=== PATIENT | male | born 1985 | race Caucasian/White ===

== ENCOUNTER 2019-08-06 11:37 | Outpatient (CLI) | payer MEDICARE, MEDICAID, SELFPAY ==
--- NOTE | 2019-08-06 11:40 | MR_ITS ---
WS: [id number] MRI of the head and brain with and without IV contrast, 08/06/2019 Clinical Data: RE-STAGING EVAL;HX OF BRAIN CANCER Comparison: MRI of the head and brain, 10/26/2018. Findings: The postoperative change of the right temporal, parietal and occipital lobes remain the same. There i s compensatory hypertrophy of the posterior horn of the right lateral ventricle. No ventricular shift is seen. No recent infarct or hemorrhage is seen. No abnormal intracerebral mass is present. The cerebellum and brainstem are unremarkable. The carotid arteries show no aneurysms. The regions of nerves VII and VIII and the mastoid air cells are unremarkable. The pituitary, intraorbital contents and paranasal sinuses are normal. No evidence of metastatic disease is seen, and there is no abnormal contrast enhancement of any struc ture. MR/MR head wo/w con [id number] Impression: 1. Stable postoperative changes with resection of portions of right temporal, p arietal and occipital lobes.. 2. Stable encephalomalacia in the postsurgical region. 3. Compensatory hypertrophy of the posterior horn of the right lateral ventricl e unchanged. 4. No abnormal contrast enhancement of any structure occurs.
[2019-08-06 12:30] LABS: Basophils # 0.1 10^3/uL (0.0-0.1); Eosinophils # 0.3 10^3/uL (0.0-0.8); Eosinophils % 5.8 %; Hematocrit 41.7 % (42.0-52.0); Lymphocytes # 1.2 10^3/uL (0.8-4.8); Lymphocytes % 23.5 %; Mean Corpuscular HGB Conc 31.2 g/dL (30.0-36.0); Mean Corpuscular Hemoglobin 27.9 pg (28.0-34.0); Mean Corpuscular Volume 89.5 fL (80-94); Mean Platelet Volume 11.2 fL (7.4-10.4); Monocytes # 0.5 10^3/uL (0.2-0.9); Monocytes % 9.1 %; Neutrophils % 60.4 %; Nucleated Red Blood Cells % 0 %; Platelet Count 314 10^3/cmm (130-400); Red Blood Count 4.66 10^6/uL (4.1-5.3); Red Cell Distribution Width 13.2 % (12.1-15.1)
[2019-08-06 12:43] LABS: Alanine Aminotransferase 76 U/L (0-41); Albumin Level 4.3 g/dL (3.5-5.2); Alkaline Phosphatase 77 IU/L (40-130); Anion Gap 16.3 (5-19); Aspartate Amino Transferase 46 U/L (0-40); Blood Urea Nitrogen 11 mg/dL (6-20); Calcium 10.4 mg/dL (8.5-10.5); Carbon Dioxide 22 mmol/L (22-29); Chloride 100 mmol/L (98-107); Globulin 3.9 g/dL (1.3-4.6); Glomerular Filtration Rate 111.3 mL/min (90-130); Glucose 119 mg/dL (74-109); Potassium 4.3 mmol/L (3.5-5.1); Sodium 134 mmol/L (136-145); Total Bilirubin 0.5 mg/dL (0.15-1.2); Total Protein 8.2 g/dL (6.6-8.7)
== END 2019-08-06 11:38 | disposition home or self-care (01) ==
LOC: ONCMED 11:37
PROVIDERS: Family Provider Internal Medicine; PCP Internal Medicine; Visit Provider Internal Medicine Hematology & Oncology
DX: Z85.841 Personal history of malignant neoplasm of brain (principal); G93.89 Other specified disorders of brain
CPT/HCPCS: 36415; 70553; 80053; 85025; A9579

== ENCOUNTER → 2019-08-07 08:13 | Outpatient (BNVA) | payer MEDICARE, MEDICAID, SELFPAY | PROVIDERS: Family Provider Internal Medicine; PCP Internal Medicine; Visit Provider Nurse Practitioner | DX: F84.0 Autistic disorder (principal); F20.9 Schizophrenia, unspecified | CPT/HCPCS: 99214 ==

== ENCOUNTER 2019-08-09 11:24 | Outpatient (CLI) | payer MEDICARE, MEDICAID, SELFPAY | END 2019-08-09 11:25 | disposition home or self-care (01) | LOC: ONCMED 11:24 | PROVIDERS: Family Provider Internal Medicine; PCP Internal Medicine; Visit Provider Internal Medicine Hematology & Oncology | DX: Z08 Encounter for follow-up examination after completed treatment for malignant neoplasm (principal); Z85.841 Personal history of malignant neoplasm of brain; F70 Mild intellectual disabilities; L40.9 Psoriasis, unspecified; F84.0 Autistic disorder; Z79.891 Long term (current) use of opiate analgesic; Z98.890 Other specified postprocedural states; Z92.3 Personal history of irradiation; Z92.21 Personal history of antineoplastic chemotherapy | CPT/HCPCS: G0463 ==

== ENCOUNTER 2019-09-30 09:30 | Outpatient (CLI) | payer MEDICARE, MEDICAID, SELFPAY ==
--- NOTE | 2019-09-30 | XR_ITS ---
WS: [id number] LEFT FOOT: 3 VIEW(S) TECHNIQUE: PA, oblique and lateral. HISTORY: LEFT FOOT PAIN COMPARISON: None available. No acute fracture or dislocation. Normal tarsal/metatarsal alignment. Small spur from the anterior calcaneal process. No soft tissue abnormality or bone destruction. XR/XR foot LT min 3V* [id number] IMPRESSION: No LEFT foot fracture.
--- NOTE | 2019-09-30 | XR_ITS ---
WS: [id number] LEFT ANKLE: 3 VIEW(S) TECHNIQUE: AP, oblique(s) and lateral. HISTORY: LEFT FOOT PAIN COMPARISON: None available. Normal anatomic alignment with no fracture or dislocation. No joint effusion or widening of the ankle mortise. Minimal irregularity noted involving the anterior calcaneal process. On the radiographs obtained on t he same day no abnormality is identified. Probably degenerative spurring. Cannot confirm fracture. Small calcaneal spur. XR/XR ankle LT min 3V* [id number] IMPRESSION: 1. No acute fracture identified. 2. Small calcaneal spur.
== END 2019-09-30 09:31 | disposition home or self-care (01) ==
PROVIDERS: Family Provider Internal Medicine; PCP Internal Medicine; Visit Provider Nurse Practitioner Family
DX: Z76.89 Persons encountering health services in other specified circumstances (principal)

== ENCOUNTER 2020-01-28 08:41 | Outpatient (CLI) | payer MEDICARE, MEDICAID, SELFPAY ==
[2020-01-28 09:26] LABS: Basophils # 0.1 10^3/uL (0.0-0.1); Basophils % 0.9 %; Eosinophils # 0.2 10^3/uL (0.0-0.8); Eosinophils % 2.5 %; Hematocrit 42.9 % (42.0-52.0); Hemoglobin 12.1 g/dL (11.7-16.6); Lymphocytes # 1.2 10^3/uL (0.8-4.8); Lymphocytes % 19.3 %; Mean Corpuscular HGB Conc 28.2 g/dL (30.0-36.0); Mean Corpuscular Hemoglobin 24.5 pg (28.0-34.0); Mean Platelet Volume 10.6 fL (7.4-10.4); Monocytes # 0.6 10^3/uL (0.2-0.9); Monocytes % 8.6 %; Neutrophils # 4.36 10^3/uL (1.8-7.7); Neutrophils % 68.4 %; Nucleated Red Blood Cells % 0 %; Platelet Count 356 10^3/cmm (130-400); Red Blood Count 4.93 10^6/uL (4.1-5.3); Red Cell Distribution Width 15.4 % (12.1-15.1); White Blood Count 6.4 10^3/uL (4.0-10.0)
[2020-01-28 09:49] LABS: Alanine Aminotransferase 24 U/L (0-41); Albumin Level 4.2 g/dL (3.5-5.2); Alkaline Phosphatase 80 IU/L (40-130); Anion Gap 13.2 (5-19); Aspartate Amino Transferase 18 U/L (0-40); Blood Urea Nitrogen 15 mg/dL (6-20); Carbon Dioxide 23 mmol/L (22-29); Chloride 107 mmol/L (98-107); Globulin 3.5 g/dL (1.3-4.6); Glomerular Filtration Rate 85.5 mL/min (90-130); Glucose 94 mg/dL (65-115); Osmolality Calculated 284 mOsm/kg (285-295); Potassium 4.2 mmol/L (3.5-5.1); Sodium 139 mmol/L (136-145); Total Bilirubin 0.3 mg/dL (0.15-1.2); Total Protein 7.7 g/dL (6.6-8.7)
== END 2020-01-28 08:42 | disposition home or self-care (01) ==
PROVIDERS: PCP Nurse Practitioner Family; Visit Provider Internal Medicine Hematology & Oncology
DX: C71.8 Malignant neoplasm of overlapping sites of brain (principal)
CPT/HCPCS: 80053; 85025

== ENCOUNTER 2020-01-29 13:10 | Outpatient (CLI) | payer MEDICARE, MEDICAID, SELFPAY ==
--- NOTE | 2020-01-29 14:40 | ONC FU_ITS ---
Dr. James follow up note Patient: Segundo Moore Unit #: [id number]: 1985 Dicatated By: Lili James M.D.Date of Visit:Jan 29, 2020 Onc Med Follow-up/Prog Note History of Present Illness: This is a 34 year-old man with glioblastoma, WHO grade IV, unmethylated. He has a history of autism and mild mental retardation. On 02/15/2017 he was seen in the emergency room with new onset of seizures. A noncontrast head CT showed a large temporoparietal mass measuring 7.7 x 4.5 x 3.8 cm. There was probable right uncal herniation. He was transferred to [facility] for further management. On 02/20/2017 he underwent craniotomy with gross total resection of the mass. Pathology was consistent with glioblastoma, IDH1 (p.R132H) mutation by IHC, WHO grade IV. The FISH analysis was positive for 19q 13 deletion and negative for 1p36 deletion, for EGFR gene amplification, and for loss of 10q/monosomy 10. The tumor was found to be unmethylated by the MGMT methylation assay. . He underwent radiation concurrently with temozolamide chemotherapy. His radiation was completed on 05/30/2017 to a total dose of 6000 cGy. He tolerated the treatment well. s/p Temodar maintenance therapy monthly x6 from July 2017 till january 2018 Follow-up MRI scan of the brain done on 10/26/2018 showed no evidence of disease recurrence or progression MRI scan of the brain done on 08/06/2019 showed stable postoperative changes with resection of portion of right temporal, parietal, occipital lobes no evidence of recurrence of disease Came for follow-up, denies any specific complaints, no fever chills, no nausea or vomiting, no diarrhea constipation but occasionally headaches. As per caregiver no seizure-like activity, no blurred vision or double vision Medications: Arthritis Pain 1 (650 mg) Tablet, controlled release Oral q 8 hours PRN, Benztropine Mesylate 1 Tablet (of 0.5 mg) Oral b.i.d., Bisacodyl 1 Suppository (of 10 mg) Rectal daily PRN, Cetirizine HCl 1 (10 mg) Tablet Oral daily PRN, Divalproex Sodium 3 Tablet (of 250 mg) Tablet, enteric coated Oral b.i.d., Docusate Sodium 1 Tablet (of 100 mg) Oral b.i.d., Famotidine 1 (20 mg) Tablet Oral b.i.d., [place] Carbonate ER 1 Tablet (of 300 mg) Tablet, controlled release Oral b.i.d., MiraLax 1 Packet Pack Oral daily, OLANZapine 1 (5 mg) Tablet Dispersable Oral daily, Ondansetron 1 Tablet Oral q 8 hours PRN, OxyCODONE HCl 1 - 2 Tablet (of 5 mg) Oral q 4 hours PRN, Propranolol HCl 1 Tablet (of 20 mg) Oral t.i.d., Senna 1 Tablet (of 8.6 mg) Tablet Oral b.i.d., thorazine 1 Tablet (of 100 mg) t.i.d. Allergies: No Known Allergies. Review of Systems: Review of Systems is not available for this patient. Vital Signs: Performed on Jan 29, 2020 13:35 Height - 72.00 in Weight - 252.0 lbs (LOW) BSA - 2.35 sq.m BMI - 34.18 (HIGH) Temperature - 98.0 F (LOW) Pulse - 84 /min Respiration - 24 /min BP - 119/83 mm(hg) O2 Sat - 96 % Pain - 0 Performance Status: 1 - No physically strenuous activity, but ambulatory and able to carry out light or sedentary work (e.g. office work, light house work). (ECOG) Physical Examination: ENMT - No mouth sores, no thrush, no, Respiratory - Lungs are clear, Cardiovascular - Regular rate and rhythm of heart, Abdomen - Soft, bowel sounds present, Extremities - No visible edema, gross Neuro exam is nonfocal. Lab/Imaging: Test performed on Aug 06, 2019 11:46 Sodium 134 mmol/L Potassium 4.3 mmol/L Chloride 100 mmol/L CO2 22 mmol/L Anion Gap 16.3 BUN 11 mg/dL Creatinine 0.8 mg/dL Cr Clearance (Est) 234.9200 mL/min eGFR 111.3 mL/min Glucose 119 mg/dL Calcium 10.4 mg/dL Protein, Total 8.2 g/dL Albumin 4.3 g/dL Globulin 3.9 g/dL Bilirubin, Total 0.5 mg/dL ALT (SGPT) 76 U/L AST (SGOT) 46 U/L Alkaline Phosphatase 77 IU/L WBC 5.0 10 3/uL RBC 4.66 10 6/uL HGB 13.0 g/dL HCT 41.7 % MCV 89.5 fL MCH 27.9 pg MCHC 31.2 g/dL RDW 13.2 % Platelet Count 314 10 3/cmm MPV 11.2 fL Neutrophils 3.0 10 3/uL Lymphocytes 1.2 10 3/uL Monocytes 0.5 10 3/uL Eosinophils 0.3 10 3/uL Basophils 0.1 10 3/uL Neutrophil % 60.4 % Lymphocyte % 23.5 % Monocyte % 9.1 % Eosinophil % 5.8 % Basophils % 1.0 % Impression: 1. Glioblastoma multiforme involving the right temporoparietal lobe, WHO grade IV, unmethylated. 2. He underwent craniotomy with gross total resection of the tumor on 02/20/2017. 3. He was given postop radiation concurrently with temozolamide chemotherapy, completed on 05/30/2017 to a total dose of 6000 cGy. He tolerated the treatment well.Started on monthly Temodar in the first week of July 2017 And second treatment on August 14- 2017 Fourth treatment on 10/19/2017 And final and cycle #6 finished in January 2018. 4. He has underlying autism/mild mental retardation. Follow-up MRI scan of head was done on 10/10/2017 showed no evidence of right temporal occipital lobe disease recurrence/progression, status post surgical resection of large intra-axial mass. Resolution of surgical bed wall enhancement and similar subadjacent white matter likely post-therapeutic changes .Follow-up MRI scan done on 05/03/2018 showed no evidence of recurrent or progressive disease. Stable right parietotemporal occipital resection cavity with surrounding encephalomalacia and gliosis. Follow-up MRI scan of the head done on 10/26/2018 showed no evidence of disease recurrence or progression Stable postoperative changes of right parietotemporal and acceptable resection with encephalomalacia, gliosis and unchanged craniotomy. No new intracranial abnormality. No evidence of increase edema or mass effect Plan: Discussed with patient and caregiver regarding his labs white blood count 6.4, hemoglobin 12.1 hematocrit 42.9 platelets 356,000 CMP within normal limits including LFTs Clinically, patient is doing well with no new signs symptom suggestive of recurrence of disease but occasionally headaches which could be due to many reasons but we will consider follow-up MRI scan of the brain prior to next visit. Return to clinic in 6 months Signed By: Lili James M.D. <<Signature on File>>
== END 2020-01-29 13:11 | disposition home or self-care (01) ==
LOC: ONCMED 13:14
PROVIDERS: PCP Nurse Practitioner Family; Visit Provider Internal Medicine Hematology & Oncology
DX: Z08 Encounter for follow-up examination after completed treatment for malignant neoplasm (principal); Z85.841 Personal history of malignant neoplasm of brain; R51 Headache; F84.0 Autistic disorder; Z92.3 Personal history of irradiation; Z92.21 Personal history of antineoplastic chemotherapy
CPT/HCPCS: G0463

== ENCOUNTER 2020-07-29 10:56 | Outpatient (CLI) | payer MEDICARE, MEDICAID, SELFPAY ==
--- NOTE | 2020-07-29 11:01 | MR_ITS ---
WS: [id number] MRI BRAIN WITH AND WITHOUT CONTRAST HISTORY: RESTAGING EVAL;HX OF CANCER; PERSISTENT Headache; glioblastoma COMPARISON: 08/06/2019, 10/26/2018 TECHNIQUE: Multiplanar imaging performed through the brain with Prohance 17 ml's IV. Postsurgical changes in the RIGHT temporal, parietal and occipital lobes now with encephalomalacia an d gliosis. Postoperative cystic cavity extends to the RIGHT occipital horn and may communicate with t he occipital horn. There are multiple CSF fluidlike cavities which are stable since the prior study. There is gliosis surrounding the postoperative cavity. There is no evidence for recurrence. No areas of abnormal enhancement or interval change. There is no edema or FLAIR signal or enhancement extendin g into the corpus callosum. The extent of the gliosis and FLAIR signal abnormality surrounding the RI GHT occipital lobe are stable. No susceptibility artifacts or prior lacunar infarcts. Extra-axial dilatation of the RIGHT lateral ventricle is similar to prior studies. No intraventricula r mass or extension. Clivus and pituitary gland are normal. Bilateral retrocerebellar arachnoid cyst. Paranasal sinuses: Well aerated with no significant disease. Mastoid air cells: Normal. Calvarium and scalp: RIGHT temporoparietal craniotomy is unchanged. MR/MR head wo/w con [id number] IMPRESSION: 1. Stable large resection site involving the RIGHT temporal, parietal and occi pital lobes with no evidence for recurrent tumor or enhancement. 2. No acute infarct. 3. Exvacuodilatation of the RIGHT occipital horn.
== END 2020-07-29 10:57 | disposition home or self-care (01) ==
LOC: RADSHAW 11:00
PROVIDERS: PCP Nurse Practitioner Family; Visit Provider Internal Medicine Hematology & Oncology
DX: C71.9 Malignant neoplasm of brain, unspecified (principal)
CPT/HCPCS: 70553; A9579

== ENCOUNTER 2020-08-14 05:39 | Outpatient (CLI) | payer MEDICARE, MEDICAID, SELFPAY ==
--- NOTE | 2020-08-14 09:37 | ONC FU_ITS ---
Dr. James follow up note Patient: Segundo Moore Unit #: [id number]: 1985 Dicatated By: Lili James M.D.Date of Visit:Aug 14, 2020 Onc Med Follow-up/Prog Note History of Present Illness: This is a 35 year-old man with glioblastoma, WHO grade IV, unmethylated. He has a history of autism and mild mental retardation. On 02/15/2017 he was seen in the emergency room with new onset of seizures. A noncontrast head CT showed a large temporoparietal mass measuring 7.7 x 4.5 x 3.8 cm. There was probable right uncal herniation. He was transferred to [facility] for further management. On 02/20/2017 he underwent craniotomy with gross total resection of the mass. Pathology was consistent with glioblastoma, IDH1 (p.R132H) mutation by IHC, WHO grade IV. The FISH analysis was positive for 19q 13 deletion and negative for 1p36 deletion, for EGFR gene amplification, and for loss of 10q/monosomy 10. The tumor was found to be unmethylated by the MGMT methylation assay. . He underwent radiation concurrently with temozolamide chemotherapy. His radiation was completed on 05/30/2017 to a total dose of 6000 cGy. He tolerated the treatment well. s/p Temodar maintenance therapy monthly x6 from July 2017 till january 2018 Follow-up MRI scan of the brain done on 10/26/2018 showed no evidence of disease recurrence or progression MRI scan of the brain done on 08/06/2019 showed stable postoperative changes with resection of portion of right temporal, parietal, occipital lobes no evidence of recurrence of disease Follow-up MRI scan of the brain done on July 29, 2020 showed stable large resection site involving the right episcopalian, parietal and occipital lobes with no evidence of recurrent or enhancement no acute infarct Came for follow-up, denies any specific complaints, no focal weakness as per caregiver no nausea or vomiting, no seizure-like activity, no headaches, no new signs symptoms. No fever chills Medications: Arthritis Pain 1 (650 mg) Tablet, controlled release Oral q 8 hours PRN, Benztropine Mesylate 1 Tablet (of 0.5 mg) Oral b.i.d., Bisacodyl 1 Suppository (of 10 mg) Rectal daily PRN, Cetirizine HCl 1 (10 mg) Tablet Oral daily PRN, ChlorproMAZINE HCl 1 Tablet (of 100 mg) Oral t.i.d., Docusate Sodium 1 Tablet (of 100 mg) Oral b.i.d., [place] Carbonate ER 1 Tablet (of 300 mg) Tablet, controlled release Oral b.i.d., MiraLax 1 Packet Pack Oral daily, Omeprazole 1 Capsule (of 20 mg) Capsule Delayed Release Oral b.i.d., Ondansetron 1 Tablet Oral q 8 hours PRN, Paxil 1 Tablet (of 10 mg) Oral at bedtime, Propranolol HCl 1 Tablet (of 20 mg) Oral t.i.d., risperiDONE 1.5 Tablet (of 0.5 mg) Oral t.i.d., Senna 1 Tablet (of 8.6 mg) Tablet Oral b.i.d., thorazine 1 Tablet (of 100 mg) t.i.d. Allergies: No Known Allergies. Review of Systems: Review of Systems is not available for this patient. Vital Signs: Performed on Aug 14, 2020 09:07 Height - 72.00 in Weight - 236.9 lbs (LOW) BSA - 2.29 sq.m BMI - 32.13 (HIGH) Temperature - 97.8 F (LOW) Pulse - 80 /min Respiration - 16 /min BP - 111/72 mm(hg) O2 Sat - 99 % Pain - 0 Performance Status: 2 - Ambulatory/capable of all self-care, unable to perform any work activities. Up and about more than 50% of waking hours. (ECOG) Physical Examination: ENMT - Denies any mouth sores, poor oral hygiene, Respiratory - Lungs are clear to auscultation, Cardiovascular - Regular rate and rhythm of heart, Abdomen - Soft, bowel sounds present, Extremities - No visible edema. Lab/Imaging: Most recent lab results are not available for this patient. Impression: 1. Glioblastoma multiforme involving the right temporoparietal lobe, WHO grade IV, unmethylated. 2. He underwent craniotomy with gross total resection of the tumor on 02/20/2017. 3. He was given postop radiation concurrently with temozolamide chemotherapy, completed on 05/30/2017 to a total dose of 6000 cGy. He tolerated the treatment well.Started on monthly Temodar in the first week of July 2017 And second treatment on August 14- 2017 Fourth treatment on 10/19/2017 And final and cycle #6 finished in January 2018. 4. He has underlying autism/mild mental retardation. Follow-up MRI scan of head was done on 10/10/2017 showed no evidence of right temporal occipital lobe disease recurrence/progression, status post surgical resection of large intra-axial mass. Resolution of surgical bed wall enhancement and similar subadjacent white matter likely post-therapeutic changes .Follow-up MRI scan done on 05/03/2018 showed no evidence of recurrent or progressive disease. Stable right parietotemporal occipital resection cavity with surrounding encephalomalacia and gliosis. Follow-up MRI scan of the head done on 10/26/2018 showed no evidence of disease recurrence or progression Stable postoperative changes of right parietotemporal and acceptable resection with encephalomalacia, gliosis and unchanged craniotomy. No new intracranial abnormality. No evidence of increase edema or mass effect Plan: Discussed with patient and caregiver regarding his MRI scan of the brain which was done on July 29, 2020 showed no evidence of recurrence of disease postsurgical changes in the right episcopalian, parietal and occipital lobes. Clinically, patient has no new signs symptom, no seizure-like activity, no focal weakness, as per caregiver no headaches or nausea or vomiting, will continue to monitor, return to clinic in 6 months with follow-up MRI scan of the head Signed By: Lili James M.D. <<Signature on File>>
== END 2020-08-14 05:40 | disposition home or self-care (01) ==
LOC: ONCMED 05:40
PROVIDERS: PCP Nurse Practitioner Family; Visit Provider Internal Medicine Hematology & Oncology
DX: Z08 Encounter for follow-up examination after completed treatment for malignant neoplasm (principal); Z85.841 Personal history of malignant neoplasm of brain; F84.0 Autistic disorder; F70 Mild intellectual disabilities; Z92.3 Personal history of irradiation; Z92.21 Personal history of antineoplastic chemotherapy
CPT/HCPCS: G0463

== ENCOUNTER 2021-02-10 09:07 | Outpatient (CLI) | payer MEDICARE, MEDICAID, SELFPAY ==
--- NOTE | 2021-02-10 09:18 | MR_ITS ---
WS: [id number] MRI BRAIN WITH AND WITHOUT CONTRAST HISTORY: Glioblastoma; persistent Headache; hx OF CANCER COMPARISON: 07/29/2020 TECHNIQUE: Multiplanar imaging performed through the brain with MultiHance 20 ml's IV. Large area of postoperative resection involving the RIGHT temporal, parietal occipital lobes with adj acent encephalomalacia. Ex vacuole dilatation of the RIGHT lateral ventricle. On the postcontrast elsa ging there is no focal area of enhancement to suggest recurrence. Very mild thickening and enhancemen t of the dura is stable and consistent with postoperative change. No extension of edema or enhancemen t through the corpus callosum. No meningeal enhancement. No prior or acute infarcts. No inferior displacement of cerebellar tonsils. Dural venous sinuses are normal. Paranasal sinuses: Well aerated with no significant disease. Mastoid air cells: Normal. Calvarium and scalp: RIGHT postoperative craniotomy site is stable. MR/MR head wo/w con [id number] IMPRESSION: 1. Large stable postoperative resection site involving the RIGHT parietal, tem poral and occipital regions with encephalomalacia. No evidence for recurrence. 2. No areas of enhancement or new progressive edema.
[2021-02-10 10:04] LABS: Basophils # 0.1 10^3/uL (0.0-0.1); Basophils % 1.1 %; Eosinophils # 0.2 10^3/uL (0.0-0.8); Eosinophils % 2.7 %; Hematocrit 42.7 % (42.0-52.0); Hemoglobin 12.8 g/dL (11.7-16.6); Lymphocytes # 1.2 10^3/uL (0.8-4.8); Lymphocytes % 16.6 %; Mean Corpuscular Hemoglobin 26.2 pg (28.0-34.0); Mean Corpuscular Volume 87.5 fL (80-94); Mean Platelet Volume 10.2 fL (7.4-10.4); Monocytes # 0.6 10^3/uL (0.2-0.9); Monocytes % 8.6 %; Neutrophils # 5.23 10^3/uL (1.8-7.7); Neutrophils % 70.6 %; Nucleated Red Blood Cells % 0 %; Platelet Count 350 10^3/cmm (130-400); Red Blood Count 4.88 10^6/uL (4.1-5.3); Red Cell Distribution Width 13.4 % (12.1-15.1); White Blood Count 7.4 10^3/uL (4.0-10.0)
[2021-02-10 10:41] LABS: Alanine Aminotransferase 13 U/L (0-41); Albumin Level 4.1 g/dL (3.5-5.2); Alkaline Phosphatase 84 IU/L (40-130); Anion Gap 11.8 (5-19); Aspartate Amino Transferase 11 U/L (0-40); Blood Urea Nitrogen 16 mg/dL (6-20); Calcium 8.9 mg/dL (8.5-10.5); Carbon Dioxide 24 mmol/L (22-29); Chloride 105 mmol/L (98-107); Glucose 75 mg/dL (65-115); Osmolality Calculated 284 mOsm/kg (285-295); Potassium 3.8 mmol/L (3.5-5.1); Sodium 137 mmol/L (136-145); Total Bilirubin 0.2 mg/dL (0.15-1.2); Total Protein 7.1 g/dL (6.6-8.7)
== END 2021-02-10 09:08 | disposition home or self-care (01) ==
PROVIDERS: PCP Nurse Practitioner Family; Visit Provider Internal Medicine Hematology & Oncology
DX: C71.8 Malignant neoplasm of overlapping sites of brain (principal); R51.9 Headache, unspecified
CPT/HCPCS: 36415; 70553; 80053; 85025; A9577

== ENCOUNTER 2021-02-15 12:26 | Outpatient (CLI) | payer MEDICARE, MEDICAID, SELFPAY ==
--- NOTE | 2021-02-15 14:13 | ONC FU_ITS ---
Dr. James follow up note Patient: Segundo Moore Unit #: [id number]: 1985 Dicatated By: Lili James M.D.Date of Visit:Feb 15, 2021 Onc Med Follow-up/Prog Note History of Present Illness: This is a 35 year-old man with glioblastoma, WHO grade IV, unmethylated. He has a history of autism and mild mental retardation. On 02/15/2017 he was seen in the emergency room with new onset of seizures. A noncontrast head CT showed a large temporoparietal mass measuring 7.7 x 4.5 x 3.8 cm. There was probable right uncal herniation. He was transferred to [facility] for further management. On 02/20/2017 he underwent craniotomy with gross total resection of the mass. Pathology was consistent with glioblastoma, IDH1 (p.R132H) mutation by IHC, WHO grade IV. The FISH analysis was positive for 19q 13 deletion and negative for 1p36 deletion, for EGFR gene amplification, and for loss of 10q/monosomy 10. The tumor was found to be unmethylated by the MGMT methylation assay. . He underwent radiation concurrently with temozolamide chemotherapy. His radiation was completed on 05/30/2017 to a total dose of 6000 cGy. He tolerated the treatment well. s/p Temodar maintenance therapy monthly x6 from July 2017 till january 2018 Follow-up MRI scan of the brain done on 10/26/2018 showed no evidence of disease recurrence or progression MRI scan of the brain done on 08/06/2019 showed stable postoperative changes with resection of portion of right temporal, parietal, occipital lobes no evidence of recurrence of disease Follow-up MRI scan of the brain done on July 29, 2020 showed stable large resection site involving the right samaritan, parietal and occipital lobes with no evidence of recurrent or enhancement no acute infarct Follow-up MRI scan of the brain done on February 10, 2021 showed large stable postoperative resection site involving right parietal, temporal and occipital regions with encephalomalacia, no evidence of recurrence of disease Came for follow-up, denies any specific complaint, no seizure-like activity no focal weakness, no headaches blurred vision or double vision, no fever chills, no nausea or vomiting, no diarrhea constipation Medications: Arthritis Pain 1 (650 mg) Tablet, controlled release Oral q 8 hours PRN, Benztropine Mesylate 1 Tablet (of 0.5 mg) Oral b.i.d., Bisacodyl 1 Suppository (of 10 mg) Rectal daily PRN, Cetirizine HCl 1 (10 mg) Tablet Oral daily PRN, ChlorproMAZINE HCl 1 Tablet (of 100 mg) Oral t.i.d., Docusate Sodium 1 Tablet (of 100 mg) Oral b.i.d., [place] Carbonate ER 1 Tablet (of 300 mg) Tablet, controlled release Oral b.i.d., MiraLax 1 Packet Pack Oral daily, Omeprazole 1 Capsule (of 20 mg) Capsule Delayed Release Oral b.i.d., Ondansetron 1 Tablet Oral q 8 hours PRN, Paxil 1 Tablet (of 10 mg) Oral at bedtime, Propranolol HCl 1 Tablet (of 20 mg) Oral t.i.d., risperiDONE 1.5 Tablet (of 0.5 mg) Oral t.i.d., Senna 1 Tablet (of 8.6 mg) Tablet Oral b.i.d., thorazine 1 Tablet (of 100 mg) t.i.d. Allergies: No Known Allergies. Review of Systems: Review of Systems is not available for this patient. Vital Signs: Vitals are not available for this patient. Performance Status: 0 - Fully active, able to carry on all predisease activities without restrictions. (ECOG) Physical Examination: ENMT - No mouth sores, no thrush but extensive exfoliative dermatitis involving scalp, Respiratory - Lungs are clear to auscultation, Cardiovascular - Regular rate and rhythm of heart, Abdomen - Soft, nontender, Extremities - No visible edema but expiratory rash involving upper extremities especially dorsal side. Lab/Imaging: Most recent lab results are not available for this patient. Impression: 1. Glioblastoma multiforme involving the right temporoparietal lobe, WHO grade IV, unmethylated. 2. He underwent craniotomy with gross total resection of the tumor on 02/20/2017. 3. He was given postop radiation concurrently with temozolamide chemotherapy, completed on 05/30/2017 to a total dose of 6000 cGy. He tolerated the treatment well.Started on monthly Temodar in the first week of July 2017 And second treatment on August 142017 Fourth treatment on 10/19/2017 And final and cycle #6 finished in January 2018. 4. He has underlying autism/mild mental retardation. Follow-up MRI scan of head was done on 10/10/2017 showed no evidence of right temporal occipital lobe disease recurrence/progression, status post surgical resection of large intra-axial mass. Resolution of surgical bed wall enhancement and similar subadjacent white matter likely post-therapeutic changes .Follow-up MRI scan done on 05/03/2018 showed no evidence of recurrent or progressive disease. Stable right parietotemporal occipital resection cavity with surrounding encephalomalacia and gliosis. Follow-up MRI scan of the head done on 10/26/2018 showed no evidence of disease recurrence or progression Stable postoperative changes of right parietotemporal and acceptable resection with encephalomalacia, gliosis and unchanged craniotomy. No new intracranial abnormality. No evidence of increase edema or mass effect MRI scan of the brain done on February 10, 2021 showed no evidence of recurrence of disease, persistent postop changes in right brain Plan: Discussed with patient and caregiver regarding his labs white blood count 7.4 hemoglobin 12.8 hematocrit 42.7 platelets 350,000 CMP within normal limits MRI scan of the brain done on February 10, 2021 showed no evidence of recurrence of disease, persistent postop changes in right brain Clinically, patient doing well with no new signs symptom suggestive of recurrence of disease, his follow-up lab work-up and MRI scan of brain shows no recurrence of disease, will continue to monitor and he will return to clinic in 6 months with CBC CMP and MRI scan of the head 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 Signed By: Lili James M.D. <<Signature on File>>
== END 2021-02-15 12:27 | disposition home or self-care (01) ==
PROVIDERS: PCP Nurse Practitioner Family; Visit Provider Internal Medicine Hematology & Oncology
DX: Z08 Encounter for follow-up examination after completed treatment for malignant neoplasm (principal); Z85.841 Personal history of malignant neoplasm of brain; F84.0 Autistic disorder; Z92.21 Personal history of antineoplastic chemotherapy; Z92.3 Personal history of irradiation; Z79.899 Other long term (current) drug therapy
CPT/HCPCS: 99214

== ENCOUNTER 2021-08-10 09:16 | Outpatient (CLI) | payer MEDICARE, MEDICAID, SELFPAY ==
--- NOTE | 2021-08-10 09:32 | MR_ITS ---
WS: [id number] MRI BRAIN WITH AND WITHOUT CONTRAST HISTORY: RESTAGING EVALUATION/HX OF CANCER COMPARISON: 02/10/2021 TECHNIQUE: Multiplanar imaging performed through the brain with MultiHance 19 ml's IV. Prior RIGHT parietal, occipital and posterior temporal craniotomy. There is a large stable postoperat saira resection site involving portions of the RIGHT parietal, temporal and occipital lobes with enceph alomalacia. There is no enhancement at the resection site. No recurrent mass identified. Encephalomal acia with ex vacuole dilatation of the adjacent lateral ventricle. No new areas of enhancement. No diffusion-weighted abnormalities. There is a small amount of increased T2 and FLAIR signal surroun ding the postoperative cavity consistent with gliosis. No new areas of hemorrhage. No midline shift. Small stable LEFT posterior occipital lymph node. Paranasal sinuses: Mild mucoperiosteal thickening in the maxillary sinus cavities. No air-fluid leve ls. Mastoid air cells: Normal. Calvarium and scalp: Normal. MR/MR head wo/w con [id number] IMPRESSION: 1. No evidence of recurrence of neoplastic disease involving the large RIGHT r esection cavity. 2. Stable RIGHT parietal, temporal and occipital resection cavity and cranioto my. 3. Extra-axial dilatation of the RIGHT lateral ventricle. 4. No new focal areas of enhancement.
== END 2021-08-10 09:17 | disposition home or self-care (01) ==
LOC: RAD 09:21
PROVIDERS: PCP Nurse Practitioner Family; Visit Provider Internal Medicine Hematology & Oncology
DX: C71.8 Malignant neoplasm of overlapping sites of brain (principal); C71.9 Malignant neoplasm of brain, unspecified
CPT/HCPCS: 70553; A9577

== ENCOUNTER 2021-08-19 08:43 | Outpatient (CLI) | payer MEDICARE, MEDICAID, SELFPAY ==
[2021-08-19 09:40] LABS: Basophils # 0.1 10^3/uL (0.0-0.1); Basophils % 0.9 %; Eosinophils # 0.2 10^3/uL (0.0-0.8); Eosinophils % 3.1 %; Hematocrit 43.4 % (42.0-52.0); Hemoglobin 13.5 g/dL (11.7-16.6); Lymphocytes # 1.1 10^3/uL (0.8-4.8); Lymphocytes % 16.4 %; Mean Corpuscular HGB Conc 31.1 g/dL (30.0-36.0); Mean Corpuscular Hemoglobin 28.4 pg (28.0-34.0); Mean Corpuscular Volume 91.4 fl (80-94); Mean Platelet Volume 10.8 fL (7.4-10.4); Monocytes # 0.5 10^3/uL (0.2-0.9); Monocytes % 7.4 %; Neutrophils # 4.88 10^3/uL (1.8-7.7); Neutrophils % 71.9 %; Nucleated Red Blood Cells % 0 %; Platelet Count 273 10^3/cmm (130-400); Red Blood Count 4.75 10^6/uL (4.1-5.3); Red Cell Distribution Width 13.2 % (12.1-15.1); White Blood Count 6.8 10^3/uL (4.0-10.0)
[2021-08-19 10:05] LABS: Alanine Aminotransferase 12 U/L (0-41); Albumin Level 4.6 g/dL (3.5-5.2); Alkaline Phosphatase 68 IU/L (40-130); Anion Gap 15.2 (5-19); Aspartate Amino Transferase 13 U/L (0-40); Blood Urea Nitrogen 12 mg/dL (6-20); Carbon Dioxide 25 mmol/L (22-29); Chloride 104 mmol/L (98-107); Globulin 2.4 g/dL (1.3-4.6); Glucose 76 mg/dL (65-115); Osmolality Calculated 289 mOsm/kg (285-295); Potassium 4.2 mmol/L (3.5-5.1); Sodium 140 mmol/L (136-145); Total Bilirubin 0.3 mg/dL (0.15-1.2)
--- NOTE | 2021-08-19 16:10 | ONC FU_ITS ---
Dr. James follow up note Patient: Segundo Moore Unit #: [id number]: 1985 Dicatated By: Lili James M.D.Date of Visit:Aug 19, 2021 Onc Med Follow-up/Prog Note History of Present Illness: This is a 35 year-old man with glioblastoma, WHO grade IV, unmethylated. He has a history of autism and mild mental retardation. On 02/15/2017 he was seen in the emergency room with new onset of seizures. A noncontrast head CT showed a large temporoparietal mass measuring 7.7 x 4.5 x 3.8 cm. There was probable right uncal herniation. He was transferred to [facility] for further management. On 02/20/2017 he underwent craniotomy with gross total resection of the mass. Pathology was consistent with glioblastoma, IDH1 (p.R132H) mutation by IHC, WHO grade IV. The FISH analysis was positive for 19q 13 deletion and negative for 1p36 deletion, for EGFR gene amplification, and for loss of 10q/monosomy 10. The tumor was found to be unmethylated by the MGMT methylation assay. . He underwent radiation concurrently with temozolamide chemotherapy. His radiation was completed on 05/30/2017 to a total dose of 6000 cGy. He tolerated the treatment well. s/p Temodar maintenance therapy monthly x6 from July 2017 till january 2018 Follow-up MRI scan of the brain done on 10/26/2018 showed no evidence of disease recurrence or progression MRI scan of the brain done on 08/06/2019 showed stable postoperative changes with resection of portion of right temporal, parietal, occipital lobes no evidence of recurrence of disease Follow-up MRI scan of the brain done on July 29, 2020 showed stable large resection site involving the right restoration, parietal and occipital lobes with no evidence of recurrent or enhancement no acute infarct Follow-up MRI scan of the brain done on February 10, 2021 showed large stable postoperative resection site involving right parietal, temporal and occipital regions with encephalomalacia, no evidence of recurrence of disease Follow-up MRI scan of brain done on August 10, 2021 showed no evidence of recurrence of neoplastic disease involving the the large right resection cavity. Stable right parietal, temporal, occipital resection cavity and craniotomy., No new focal areas of enhancement Came for follow-up, denies any specific complaints, no headaches no blurred vision no double vision, no seizure-like activity, no fever chills, no nausea or vomiting, appetite is good, as per caregiver no new symptoms since last visit Medications: Arthritis Pain 1 (650 mg) Tablet, controlled release Oral q 8 hours PRN, Benztropine Mesylate 1 Tablet (of 0.5 mg) Oral b.i.d., Bisacodyl 1 Suppository (of 10 mg) Rectal daily PRN, Cetirizine HCl 1 (10 mg) Tablet Oral daily PRN, ChlorproMAZINE HCl 1 Tablet (of 100 mg) Oral t.i.d., Docusate Sodium 1 Tablet (of 100 mg) Oral b.i.d., [place] Carbonate ER 1 Tablet (of 300 mg) Tablet, controlled release Oral b.i.d., MiraLax 1 Packet Pack Oral daily, Omeprazole 1 Capsule (of 20 mg) Capsule Delayed Release Oral b.i.d., Ondansetron 1 Tablet Oral q 8 hours PRN, Paxil 1 Tablet (of 10 mg) Oral at bedtime, Propranolol HCl 1 Tablet (of 20 mg) Oral t.i.d., risperiDONE 1.5 Tablet (of 0.5 mg) Oral t.i.d., Senna 1 Tablet (of 8.6 mg) Tablet Oral b.i.d., thorazine 1 Tablet (of 100 mg) t.i.d. Allergies: No Known Allergies. Review of Systems: Review of Systems is not available for this patient. Vital Signs: Performed on Aug 19, 2021 10:45 Height - 72.00 in Weight - 208.2 lbs (LOW) BSA - 2.17 sq.m BMI - 28.24 Temperature - 97.3 F (LOW) Pulse - 87 /min Respiration - 16 /min BP - 101/70 mm(hg) O2 Sat - 99 % Pain - 0 Fatigue - 0 Performance Status: 1 - No physically strenuous activity, but ambulatory and able to carry out light or sedentary work (e.g. office work, light house work). (ECOG) Physical Examination: ENMT - No mouth sores, no thrush, no jaundice, Respiratory - Lungs are clear to auscultation g, Cardiovascular - Regular rate and rhythm of heart, Abdomen - Soft, bowel sounds present, Extremities - No visible edema. Lab/Imaging: Most recent lab results are not available for this patient. Impression: 1. Glioblastoma multiforme involving the right temporoparietal lobe, WHO grade IV, unmethylated. 2. He underwent craniotomy with gross total resection of the tumor on 02/20/2017. 3. He was given postop radiation concurrently with temozolamide chemotherapy, completed on 05/30/2017 to a total dose of 6000 cGy. He tolerated the treatment well.Started on monthly Temodar in the first week of July 2017 And second treatment on August 14- 2017 Fourth treatment on 10/19/2017 And final and cycle #6 finished in January 2018. 4. He has underlying autism/mild mental retardation. Follow-up MRI scan of head was done on 10/10/2017 showed no evidence of right temporal occipital lobe disease recurrence/progression, status post surgical resection of large intra-axial mass. Resolution of surgical bed wall enhancement and similar subadjacent white matter likely post-therapeutic changes .Follow-up MRI scan done on 05/03/2018 showed no evidence of recurrent or progressive disease. Stable right parietotemporal occipital resection cavity with surrounding encephalomalacia and gliosis. Follow-up MRI scan of the head done on 10/26/2018 showed no evidence of disease recurrence or progression Stable postoperative changes of right parietotemporal and acceptable resection with encephalomalacia, gliosis and unchanged craniotomy. No new intracranial abnormality. No evidence of increase edema or mass effect MRI scan of the brain done on February 10, 2021 showed no evidence of recurrence of disease, persistent postop changes in right brain MRI scan of the brain done on August 10, 2021 showed no evidence of recurrence or no new focal areas of enhancement, postsurgical changes in right parietal, temporal, occipital resection cavity and craniotomy Plan: Discussed with patient and caregiver regarding his labs white blood count 6.8 hemoglobin 13.5 hematocrit 43.4 platelets 273,000 CMP within normal limits, MRI scan of the brain done on August 10, 2021 showed no evidence of recurrence or no new focal areas of enhancement, postsurgical changes in right parietal, temporal, occipital resection cavity and craniotomy Clinically, patient doing well with no new signs symptoms history of recurrence of disease, his lab work-up as well as follow-up MRI scan of brain shows no evidence of recurrence, at this point we will continue to monitor he will return to clinic in 6 months with CMP and MRI scan of the brain, if normal, will change to yearly follow-up Signed By: Lili James M.D. <<Signature on File>>
== END 2021-08-19 08:44 | disposition home or self-care (01) ==
LOC: ONCMED 08:57
PROVIDERS: PCP Nurse Practitioner Family; Visit Provider Internal Medicine Hematology & Oncology
DX: Z85.841 Personal history of malignant neoplasm of brain (principal); F84.0 Autistic disorder; F79 Unspecified intellectual disabilities; Z79.899 Other long term (current) drug therapy; Z92.21 Personal history of antineoplastic chemotherapy
CPT/HCPCS: 36415; 80053; 85025; 99214

== ENCOUNTER 2022-02-17 09:18 | Outpatient (CLI) | payer MEDICARE, MEDICAID, SELFPAY ==
--- NOTE | 2022-02-17 09:28 | MR_ITS ---
WS: [id number] MRI HEAD WITH CONTRAST TECHNIQUE: Sagittal T1, T2 axial, T2 axial FLAIR, axial susceptibility weighted imaging, axial diffus ion weighted images, and coronal T2 images were obtained. Pre and post-T1 axial and post T1 coronal i mages. ADC and FSPGR images. CLINICAL INFORMATION: MALIGNANT NEOPLASM OF OVERLAPPING SITES OF BRAIN COMPARISON: MRI 08/10/2021 and 02/10/2021. July 29, 2020 at August 06, 2019 FINDINGS: No evidence of restricted diffusion to suggest acute ischemia. Normal posterior fossa. Normal vascula r flow voids at the skull base. No extra axial fluid collections. Paranasal sinuses and mastoid air c ells well aerated. Prior postoperative changes right Parietal occipital and posterior temporal craniotomy with underlyin g resection cavity. Resection cavity is stable in appearance. Associated surrounding encephalomalacia and gliosis about the resection cavity. Ex vacuo dilatation about the right lateral ventricle. No evidence of increasing edema or mass effect . No pathologic enhancement. No evidence of recurrent or progressive disease. Stable hemosiderin at t he resection cavity. Advanced atrophy of the temporal lobes and hippocampal formations. Normal optic chiasm and pituitary infundibulum. Normal cavernous sinuses and Meckel's cave. MR/MR head wo/w con [id number] IMPRESSION: 1. No evidence of recurrent or progressive disease. 2. Stable right parietotemporal occipital resection cavity with surrounding enc ephalomalacia and gliosis. 3. No evidence of increasing edema or mass effect. No pathologic enhancement. 4. No other significant changes.
[2022-02-17] MEDS: gadobenate dimeglumine 20 mL vial IV (11:21)
== END 2022-02-17 09:19 | disposition home or self-care (01) ==
LOC: RAD 09:19
PROVIDERS: PCP Nurse Practitioner Family; Visit Provider Internal Medicine Hematology & Oncology
DX: C71.8 Malignant neoplasm of overlapping sites of brain (principal)
CPT/HCPCS: 70553

== ENCOUNTER 2022-03-15 10:43 | Oncology outpatient (recurring) (ONCR) | payer MEDICARE, MEDICAID, SELFPAY ==
[2022-03-15 11:58] LABS: Basophils # 0.1 10^3/uL (0.0-0.1); Eosinophils # 0.2 10^3/uL (0.0-0.8); Eosinophils % 3.3 %; Hematocrit 41.7 % (42.0-52.0); Hemoglobin 13.4 g/dL (11.7-16.6); Lymphocytes # 1.2 10^3/uL (0.8-4.8); Lymphocytes % 20.9 %; Mean Corpuscular HGB Conc 32.1 g/dL (30.0-36.0); Mean Corpuscular Hemoglobin 29.3 pg (28.0-34.0); Mean Corpuscular Volume 91.2 fl (80-94); Mean Platelet Volume 11.6 fL (7.4-10.4); Monocytes # 0.5 10^3/uL (0.2-0.9); Neutrophils # 3.81 10^3/uL (1.8-7.7); Neutrophils % 66.5 %; Nucleated Red Blood Cells % 0 %; Platelet Count 256 10^3/cmm (130-400); Red Blood Count 4.57 10^6/uL (4.1-5.3); Red Cell Distribution Width 12.8 % (12.1-15.1); White Blood Count 5.7 10^3/uL (4.0-10.0)
[2022-03-15 12:20] LABS: Alanine Aminotransferase 12 U/L (0-41); Albumin Level 4.5 g/dL (3.5-5.2); Alkaline Phosphatase 63 U/L (40-130); Anion Gap 10.3 (5-19); Aspartate Amino Transferase 12 U/L (0-40); Blood Urea Nitrogen 19 mg/dL (6-20); Calcium 9.2 mg/dL (8.5-10.5); Carbon Dioxide 29 mmol/L (22-29); Chloride 105 mmol/L (98-107); Globulin 2.5 g/dL (1.3-4.6); Glomerular Filtration Rate 95.5 mL/min (90-130); Glucose 74 mg/dL (65-115); Osmolality Calculated 291 mOsm/kg (285-295); Potassium 4.3 mmol/L (3.5-5.1); Sodium 140 mmol/L (136-145); Total Bilirubin 0.2 mg/dL (0.15-1.2)
== END 2022-04-08 23:59 | disposition home or self-care (01) ==
PROVIDERS: Nurse Practitioner; PCP Nurse Practitioner Family; Visit Provider Internal Medicine Hematology & Oncology
DX: Z08 Encounter for follow-up examination after completed treatment for malignant neoplasm (principal); Z85.841 Personal history of malignant neoplasm of brain; G93.89 Other specified disorders of brain; Z92.21 Personal history of antineoplastic chemotherapy; Z92.3 Personal history of irradiation
CPT/HCPCS: 36415; 80053; 85025; 99213; 99214

== ENCOUNTER → 2023-02-20 15:38 | Outpatient (BNVA) | payer MEDICARE, MEDICAID, SELFPAY | PROVIDERS: PCP Nurse Practitioner Family; Visit Provider Dermatology | DX: L40.0 Psoriasis vulgaris (principal); L80 Vitiligo; D22.5 Melanocytic nevi of trunk | CPT/HCPCS: 99203 ==

== ENCOUNTER 2023-04-10 15:49 | Outpatient (CLI) | payer MEDICARE, MEDICAID, SELFPAY ==
--- NOTE | 2023-04-10 16:00 | MR_ITS ---
WS: [id number] MRI BRAIN WITH AND WITHOUT CONTRAST HISTORY: Follow-up glioma. COMPARISON: 02/17/2022 TECHNIQUE: Multiplanar imaging performed through the brain with MultiHance 16 ml's IV. There has been a significant change in appearance of the brain since the prior examination of 02/18/20 22. Patient is status post postoperative RIGHT parieto-occipital and posterior temporal craniotomy. T here is a large resection cavity from the prior surgery. New extensive signal abnormality throughout the RIGHT cerebrum. There is mixed signal on the T2 and FLAIR sequences extending from the resection cavity extending into the temporal and frontal lobes. There is extensive edema in mixed signal infilt rating through the soft tissues. There is mass effect upon the midline with loss of the normal pacheco-w alexey matter differentiation. Approximately 7 mm of midline shift to the LEFT. There is significant ma ss effect upon the RIGHT lateral ventricle and the third ventricle. On the postcontrast imaging there is extensive nodular enhancement centered predominantly in the RIGHT temporal lobe measuring 3.9 x 6 .3 x 4.2 cm. The enhancement extends from the anterior resection cavity. There is significant motion artifact limiting the extent of disease evaluation. Tumor extension is causing anterior bowing of the RIGHT middle cerebral artery. Tumor extends into the inferior medial temporal lobe with slight mass effect upon the brainstem. No evidence for an acute infarct. Paranasal sinuses: Well aerated with no significant disease. Mastoid air cells: Normal. IMPRESSION: 1. Significant adverse change in appearance of the brain since the prior examination of 02/17/2022. 2. New area of enhancement consistent with tumor progression involving a large portion of the RIGHT temporal and frontal lobes. Enhancement is contiguous with the large resection cavity in the RIGHT pa rieto-occipital and temporal lobes. There is a large amount of diffuse infiltrating edema. Area of en hancement centered in the RIGHT temporal lobe measures 3.9 x 6.3 x 4.2 cm. Consistent direct recurren ce of glioma. 3. Significant mass effect upon the RIGHT lateral ventricle and 7 mm of midline shift. 4. Status post prior RIGHT parietotemporal occipital resection cavity. Notified Juan David Barreto MD at 04/11/2023 8:15 AM. Spoke with Olya.
[2023-04-10] MEDS: gadobenate dimeglumine 20 mL vial IV (17:30)
== END 2023-04-10 15:50 | disposition home or self-care (01) ==
LOC: RAD 15:57
PROVIDERS: PCP Nurse Practitioner Family; Visit Provider Internal Medicine Medical Oncology
DX: C71.8 Malignant neoplasm of overlapping sites of brain (principal); Z98.890 Other specified postprocedural states; Z90.89 Acquired absence of other organs
CPT/HCPCS: 70553; A9577

== ENCOUNTER 2023-04-18 08:14 | Oncology outpatient (recurring) (ONCR) | payer MEDICARE, MEDICAID, SELFPAY ==
[2023-04-18 08:50] LABS: Basophils # 0.1 10^3/uL (0.0-0.1); Basophils % 0.8 %; Eosinophils # 0.1 10^3/uL (0.0-0.8); Lymphocytes # 1.2 10^3/uL (0.8-4.8); Lymphocytes % 18.4 %; Mean Corpuscular HGB Conc 32.5 g/dL (30-55); Mean Corpuscular Hemoglobin 29.3 pg (27-33); Mean Corpuscular Volume 90.3 fl (82-101); Mean Platelet Volume 10.7 fL (7.4-10.4); Monocytes # 0.4 10^3/uL (0.2-0.9); Monocytes % 6.9 %; Neutrophils # 4.59 10^3/uL (1.8-7.7); Neutrophils % 71.7 %; Nucleated Red Blood Cells % 0 %; Platelet Count 242 10^3/cmm (157-399); Red Blood Count 4.43 10^6/uL (3.85-5.65); Red Cell Distribution Width 12.5 % (12.1-15.1)
[2023-04-18 08:59] VITALS: BP 88/60; PULSE 67; RESP 16; TEMP 36.9; O2SAT 97
[2023-04-18 09:17] LABS: Alanine Aminotransferase 12 U/L (0-41); Albumin Level 4.2 g/dL (3.5-5.2); Alkaline Phosphatase 57 U/L (40-130); Blood Urea Nitrogen 21 mg/dL (6-20); Calcium 9.2 mg/dL (8.5-10.5); Carbon Dioxide 24 mmol/L (22-29); Chloride 107 mmol/L (98-107); Globulin 2.5 g/dL (1.3-4.6); Glucose 102 mg/dL (65-115); Osmolality Calculated 291 mOsm/kg (285-295); Sodium 139 mmol/L (136-145); Total Bilirubin 0.4 mg/dL (0.15-1.2); Total Protein 6.7 g/dL (6.6-8.7)
[2023-04-18 09:19] LABS: Anion Gap 12.8 (5-19); Aspartate Amino Transferase 15 U/L (0-40); Potassium 4.8 mmol/L (3.5-5.1)
== END 2023-05-09 23:59 | disposition home or self-care (01) ==
PROVIDERS: Nurse Practitioner Family; PCP Nurse Practitioner Family; Visit Provider Internal Medicine Hematology & Oncology
DX: Z08 Encounter for follow-up examination after completed treatment for malignant neoplasm (principal); Z85.841 Personal history of malignant neoplasm of brain; G93.89 Other specified disorders of brain; Z92.21 Personal history of antineoplastic chemotherapy; Z92.3 Personal history of irradiation; C71.8 Malignant neoplasm of overlapping sites of brain
CPT/HCPCS: 36415; 80053; 85025; 99215

== ENCOUNTER 2023-04-29 18:51 | Emergency (ER) | payer MEDICARE, MEDICAID, SELFPAY ==
[2023-04-29 18:52] VITALS: BMI 27.3
[2023-04-29 19:07] VITALS: BP 116/86; PULSE 103; RESP 14; TEMP 36.4; O2SAT 93
--- NOTE | 2023-04-29 19:29 | CTR_ITS ---
PROCEDURE INFORMATION: Exam: CT Head Without Contrast Exam date and time: 04/29/2023 7:38 PM Age: 37 years old Clinical indication: Condition or disease; Convulsions or seizures; Prior surgery; Surgery date: 6+ months; Surgery type: Craniotomy; Patient HX: Witnessed seizure. History of stage iv glioblastoma. ; Additional info: Sz. Known mass TECHNIQUE: Imaging protocol: Computed tomography of the head without contrast. Radiation optimization: All CT scans at this facility use at least one of these dose optimization techniques: automated exposure control; mA and/or kV adjustment per patient size (includes targeted exams where dose is matched to clinical indication); or iterative reconstruction. REPORTING DATA: Count of CT and Cardiac NM exams in prior 12 months: This patient has received 0 known CTs and 0 known cardiac nuclear medicine studies in the 12 months prior to the current study. COMPARISON: MR head wo/w con [id number] 04/10/2023 4:58 PM RADIATION DOSE METRICS: Total DLP (mGy-cm): 922.38 FINDINGS: Brain: Leftward midline shift measures 5 mm. This is unchanged. Right-sided multifocal calvarial craniotomy. Large right temporal mass again seen with areas of internal cystic change, fluid levels, blood products, and extensive surrounding vasogenic edema. Right posterior temporal/parietal cystic encephalomalacia communicating with the right LV. No new hemorrhage. No progressive midline shift. Large ventricles again seen. There is a posterior fossa rekha cisterna magna or arachnoid cyst noted. Cerebral ventricles: See Brain finding. Paranasal sinuses: The partially assessed sinuses are grossly clear. Mastoid air cells: Visualized mastoid air cells are well aerated. Bones/joints: See Brain finding. Soft tissues: Unremarkable. CT/CT head wo con* [id number] IMPRESSION: Compared with 04/10/2023, no change. Large known right recurrent temporal parenchymal mass again seen with right hemispheric postop changes, edema, and unchanged mild leftward midline shift. Advise appropriate, close follow-up.
[2023-04-29 20:00] VITALS: BP 124/90; PULSE 91; RESP 16; O2SAT 92
[2023-04-29 20:05] LABS: Basophils % 0.1 %; Eosinophils # 0.2 10^3/uL (0.0-0.8); Eosinophils % 1.6 %; Hematocrit 45.3 % (37-53); Lymphocytes # 1.8 10^3/uL (0.8-4.8); Mean Corpuscular HGB Conc 33.3 g/dL (30-55); Mean Corpuscular Hemoglobin 29.4 pg (27-33); Mean Corpuscular Volume 88.1 fl (82-101); Mean Platelet Volume 9.8 fL (7.4-10.4); Monocytes # 1.1 10^3/uL (0.2-0.9); Monocytes % 8.1 %; Neutrophils # 9.91 10^3/uL (1.8-7.7); Neutrophils % 75.3 %; Nucleated Red Blood Cells % 0 %; Platelet Count 338 10^3/cmm (157-399); Red Blood Count 5.14 10^6/uL (3.85-5.65); Red Cell Distribution Width 12.7 % (12.1-15.1); White Blood Count 13.15 10^3/uL (3.29-11.43)
[2023-04-29 20:34] LABS: Alanine Aminotransferase 59 U/L (0-41); Albumin Level 4.1 g/dL (3.5-5.2); Alkaline Phosphatase 53 U/L (40-130); Anion Gap 12.5 (5-19); Aspartate Amino Transferase 17 U/L (0-40); Blood Urea Nitrogen 28 mg/dL (6-20); Calcium 9.5 mg/dL (8.5-10.5); Carbon Dioxide 28 mmol/L (22-29); Chloride 100 mmol/L (98-107); Creatine Phosphokinase 59 U/L (39-308); Globulin 2.8 g/dL (1.3-4.6); Glomerular Filtration Rate 151.6 mL/min (90-130); Glucose 103 mg/dL (65-115); Magnesium 2.2 mg/dL (1.7-2.3); Osmolality Calculated 288 mOsm/kg (285-295); Phosphorus 3.4 mg/dL (2.5-4.5); Potassium 4.5 mmol/L (3.5-5.1); Sodium 136 mmol/L (136-145); Total Bilirubin 0.3 mg/dL (0.15-1.2); Total Protein 6.9 g/dL (6.6-8.7)
[2023-04-29 21:22] LABS: Lithium 0.4 mmol/L (0.6-1.2)
--- NOTE | 2023-04-29 21:55 | ED_ITS ---
HPI - Seizure General: Chief Complaint: Seizure Stated Complaint: SEIZURE Time Seen by Provider: 04/29/23 19:05 History of Present Illness: HPI Narrative: 37-year-old male with a history of glioblastoma that is recurrent. He was evaluated at [facility] [place], last week. He was allowed home essentially on hospice. He is to start palliative chemotherapy on Monday. He had a seizure that lasted several minutes at home. 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 He has not had seizures prior with this recurrence of his cancer. He did have seizures prior to his first diagnosis of cancer, with resection of his tumor that followed at that time. He is on no seizure medications. No other illnesses. No fever. Deck[employer] states he is not back to baseline, as he does not know her name and usually does. MD complaint: seizure -: minutes(s) Witnessed: Yes - by Bystander Associated symptoms: Deny chest pain, chills or fever(s) Review of Systems Const: Denies: fever(s) or chills ENMT: Denies: throat pain Card: Denies: chest pain Resp: Denies: dyspnea GI: Denies: vomiting Neuro: Reports: seizure-like activity PFS ED PFSH: Medical History Autistic disorder Malignant neoplasm of overlapping sites of brain Schizophrenia, unspecified Family History Other Family history unknown Social History Smoking and tobacco/nicotine status: never used tobacco/nicotine Alcohol intake: never Physical Exam Const: GENERAL APPEARANCE: cooperative and frail appearing (Mildly.); not ill appearing HENMT: COMMON NORMALS: normocephalic and Normal external nose present HEAD & SCALP: normocephalic and contusion (Postauricular on the left.) FACE & SINUS: normal facial exam and face symmetric NOSE: Normal external nose present Eye: COMMON NORMALS: Equal, round and reactive pupils present and EOMs intact bilaterally PUPIL: Yes Equal, round and reactive pupils present Neck/C-Spine: GENERAL: Yes trachea midline Chest: CHEST: Yes Symmetrical chest wall rise Resp: COMMON NORMALS: normal respiratory effort, No retractions, No use of accessory muscles and clear to auscultation bilaterally AUSCULTATION: clear to auscultation bilaterally Cardio: COMMON NORMALS: regular rate and regular rhythm RATE: regular rate RHYTHM: regular rhythm GI: COMMON NORMALS: Normal to inspection, nondistended, normoactive bowel sounds present and non-tender Extremity: NARRATIVE EXTREMITY EXAM: Atraumatic Neuro: ALBA COMA SCALE: document GCS findings Paisley coma scale eye opening: Spontaneous Alba coma scale verbal response: Words Alba coma scale motor response: Localising Paisley coma scale total score: 12 Course Vital Signs: Vital signs: Vital Signs Temperature 97.6 F 04/29/23 19:07 Pulse Rate 84 04/29/23 22:03 Respiratory Rate 16 04/29/23 22:03 Blood Pressure 127/104 04/29/23 22:03 Pulse Oximetry 95 04/29/23 22:03 MDM - Seizure MDM Narrative Medical decision making narrative: The patient has steadily improved slowly over time in the ER. He now knows his caretakers name. He is talking some. He is following directions to some degree. Nearing baseline. Head CT reveals no change from his prior scan earlier in the month here. Laboratory work-up is benign. He is loaded with 1000 mg of Keppra here. We will continue his Keppra. Deckhand [employer] will call his care team on Monday. He is due to start chemotherapy there at [facility] at that point. They can continue treatment as needed for seizure. To return for any repeated episodes of seizure or other worsening or new symptoms. Lab Data 04/29/23 19:55 04/29/23 19:55 Labs: Radiology Impressions Head CT 04/29/23 19:29 IMPRESSION: Compared with 04/10/2023, no change. Large known right recurrent temporal parenchymal mass again seen with right hemispheric postop changes, edema, and unchanged mild leftward midline shift. Advise appropriate, close follow-up. Laboratory Results WBC 13.15 10^3/uL (3.29-11.43) H 04/29/23 19:55 RBC 5.14 10^6/uL (3.85-5.65) 04/29/23 19:55 Hgb 15.10 g/dL (11.27-16.99) 04/29/23 19:55 Hct 45.3 % (37-53) 04/29/23 19:55 MCV 88.1 fl (82-101) 04/29/23 19:55 MCH 29.4 pg (27-33) 04/29/23 19:55 MCHC 33.3 g/dL (30-55) 04/29/23 19:55 RDW 12.7 % (12.1-15.1) 04/29/23 19:55 Plt Count 338 10^3/cmm (157-399) 04/29/23 19:55 MPV 9.8 fL (7.4-10.4) 04/29/23 19:55 Neut % (Auto) 75.3 % 04/29/23 19:55 Lymph % (Auto) 14.0 % 04/29/23 19:55 Benton % (Auto) 8.1 % 04/29/23 19:55 Eos % (Auto) 1.6 % 04/29/23 19:55 Baso % (Auto) 0.1 % 04/29/23 19:55 Neut # (Auto) 9.91 10^3/uL (1.8-7.7) H 04/29/23 19:55 Lymph # (Auto) 1.8 10^3/uL (0.8-4.8) 04/29/23 19:55 Benton # (Auto) 1.1 10^3/uL (0.2-0.9) H 04/29/23 19:55 Eos # (Auto) 0.2 10^3/uL (0.0-0.8) 04/29/23 19:55 Baso # (Auto) 0.0 10^3/uL (0.0-0.1) 04/29/23 19:55 Nucleated RBC % (auto) 0 % 04/29/23 19:55 Nucleated RBCs # 0.0 /100WBC 04/29/23 19:55 Sodium 136 mmol/L (136-145) 04/29/23 19:55 Potassium 4.5 mmol/L (3.5-5.1) 04/29/23 19:55 Chloride 100 mmol/L (98-107) 04/29/23 19:55 Carbon Dioxide 28 mmol/L (22-29) 04/29/23 19:55 Anion Gap 12.5 (5-19) 04/29/23 19:55 BUN 28 mg/dL (6-20) H 04/29/23 19:55 Creatinine 0.6 mg/dL (0.7-1.2) L 04/29/23 19:55 GFR Calculation 151.6 mL/min (90-130) H 04/29/23 19:55 Glucose 103 mg/dL (65-115) 04/29/23 19:55 Calculated Osmolality 288 mOsm/kg (285-295) 04/29/23 19:55 Lactic Acid 2.0 mmol/L (0.5-2.2) 04/29/23 19:55 Calcium 9.5 mg/dL (8.5-10.5) 04/29/23 19:55 Phosphorus 3.4 mg/dL (2.5-4.5) 04/29/23 19:55 Magnesium 2.2 mg/dL (1.7-2.3) 04/29/23 19:55 Total Bilirubin 0.3 mg/dL (0.15-1.2) 04/29/23 19:55 AST 17 U/L (0-40) 04/29/23 19:55 ALT 59 U/L (0-41) H 04/29/23 19:55 Alkaline Phosphatase 53 U/L (40-130) 04/29/23 19:55 Creatine Kinase 59 U/L (39-308) 04/29/23 19:55 C-Reactive Protein 3.0 mg/L (0.0-4.9) 04/29/23 19:55 Total Protein 6.9 g/dL (6.6-8.7) 04/29/23 19:55 Albumin 4.1 g/dL (3.5-5.2) 04/29/23 19:55 Globulin 2.8 g/dL (1.3-4.6) 04/29/23 19:55 [place] 0.4 mmol/L (0.6-1.2) L 04/29/23 19:55 All radiology interpretation(s) finalized by discharge Discharge Plan Discharge Patient Disposition: Home Clinical Impression: Generalized seizure, Malignant neoplasm of overlapping sites of brain Condition: Stable Prescriptions: New Keppra 750 mg tablet 750 mg PO BID Qty: 60 0RF No Action benztropine 0.5 mg tablet 0.5 mg PO BID Qty: 60 0RF chlorpromazine 100 mg tablet 100 mg PO TID Qty: 90 0RF lithium carbonate 300 mg capsule 300 mg PO BID Qty: 60 0RF paroxetine HCl [Paxil] 10 mg tablet 10 mg PO .HS Qty: 30 0RF ammonium lactate 12 % cream 1 applic TOPICAL BID docusate sodium [Colace] 100 mg capsule 100 mg PO BID omeprazole 20 mg capsule,delayed release(DR/EC) 20 mg PO BID polyethylene glycol 3350 17 gram/dose powder 17 gm PO DAILY risperidone [Risperdal] 0.5 mg tablet 0.5 mg PO DAILY senna 8.6 mg capsule 8.6 mg PO BID PRN triamcinolone acetonide 0.025 % ointment 1 applic TOPICAL BID acetaminophen [Tylenol 8 Hour] 650 mg tablet extended release 650 mg PO Q8H bisacodyl 10 mg suppository 10 mg [place] DAILY PRN Zyrtec 10 mg capsule 10 mg PO DAILY clobetasol 0.05 % cream 1 applic TOPICAL BID ondansetron HCl [Zofran] 8 mg tablet 8 mg PO Q12H (DME) Diabetic shoes with molded inserts See Rx Instructions .Route .MEDSUPPLY Qty: 1 0RF Rx Instructions: As directed (DME) Custom orthotic inserts See Rx Instructions .Route .MEDSUPPLY Qty: 1 0RF Rx Instructions: As directed Discharge Orders: Discharge ED (Routine); Ordered 04/29/23 Ordered By: Dorian Gil Referrals: Mis Marcus FNP [Primary Care Provider] - Patient Instructions: Generalized Tonic Clonic Seizures (ED) Activity Restrictions/Additional Instructions: Medication as directed. Return for repeated episodes of seizure, worsening men libertad status, other concerning symptoms. Call your doctor on Monday to let them know you were seen here with a seizure, and that you were prescribed a medication. They may wish to make more changes. Coding Level of Care Code ED Grinder Set Up Operator Centerless for Lincoln Mitchell
[2023-04-29 22:03] VITALS: BP 127/104; PULSE 84; RESP 16; O2SAT 95
== END 2023-04-29 22:10 | disposition home or self-care (01) ==
PROVIDERS: Emergency Provider Emergency Medicine; PCP Nurse Practitioner Family
DX: G40.409 Other generalized epilepsy and epileptic syndromes, not intractable, without status epilepticus (principal); C71.8 Malignant neoplasm of overlapping sites of brain; F84.0 Autistic disorder
CPT/HCPCS: 36415; 70450; 80053; 80178; 82550; 83605; 83735; 84100; 85025; 86140; 96365; 96366; 99285; J1953

== ENCOUNTER 2023-06-22 05:14 | Emergency (ER) | payer MEDICARE, MEDICAID, SELFPAY ==
[2023-06-22] VITALS (11 sets, daily range): BP systolic 114–145; BP diastolic 70–100; PULSE 43–66; RESP 10–19; TEMP 36.6; O2SAT 94–99
--- NOTE | 2023-06-22 05:18 | ED_ITS ---
Documented by User: Luis E Crowe MD 07/19/23 06:39 HPI - Fall General: Chief Complaint: Fall Stated Complaint: fall Time Seen by Provider: 06/22/23 05:17 History of Present Illness: 37-year-old male presents to the emergen cy department via EMS personnel from his long-term care facility. EMS states that the patient has stage IV brain cancer and unfortunately fell this evening hitting his head. He is a very poor historian and it is noted that his right pupil is larger than his left pupil. Per the [facility] staff it does not appear that the patient was knocked out or had loss of consciousness. Associated symptoms-after fall: Reports difficulty walking and headache(s) Review of Systems General: Reports: 10 or more systems reviewed and unremarkable except in HPI and below Neuro: Reports: headache(s) and difficulty walking [facility] ED PFSH: Medical History Autistic disorder Malignant neoplasm of overlapping sites of brain Schizophrenia, unspecified Family History Other Family history unknown Social History Smoking and tobacco/nicotine status: never used tobacco/nicotine Alcohol intake: never Physical Exam Narrative: EXAM NARRATIVE: Constitutional: the patient appears well nourished and of normal development. Vital signs as documented. No acute distress at present. Alert and oriented-to person, place, time and situation. Head, eyes, ears, nose, mouth, throat: Normocephalic, atraumatic. Pupils-equal, round, reactive to light. No scleral icterus. Normal-appearing external ears. Normal appearing nasal turbinates, no drainage. No obvious oral lesions, posterior oropharynx without erythema or exudates. Neck: Supple, trachea is midline, no lymphadenopathy, no jugular venous distension, thyromegaly, or carotid bruits. Carotid upstrokes are brisk bilaterally. Lungs: clear to auscultation to all lung hopper. Symmetrical rise and fall of chest, no obvious signs of increased work of breathing at present. Cardiac: Regular rate and rhythm, positive S1, S2. No murmurs, rubs or gallops that I can appreciate Abdomen: Soft, non-tender to palpation, normal active bowel sounds to all quadrants. No palpable masses, no organomegaly and abdominal bruits. Extremities: 2+ pulses in the upper extremities that are equal bilaterally, 2+ pulses in the lower extremities that are equal bilaterally. Non-edematous. Moves all extremities well, sensation to all extremities are noted. Skin: Warm, dry, intact. Course Vital Signs: Vital signs: Vital Signs Temperature 97.8 F 06/22/23 05:18 Pulse Rate 58 L 06/22/23 11:51 Respiratory Rate 10 L 06/22/23 11:22 Blood Pressure 114/70 06/22/23 11:51 Pulse Oximetry 94 06/22/23 11:51 Oxygen Delivery Me thod Room Air 06/22/23 11:22 MDM - Fall Medical Decision Making Transfer of care to Dr. Bustillo at shift change. Large intracranial bleed at the site of the previous tumor on the right frontal temporal area. There is midline shift. According to old records previously there is a 7 mm shift now there is a 9 mm shift given the history from the caregiver suspect this is an acute worsening of his bleed with increasing symptoms. Previously he had been able to ambulate on his own before this fall now he is essentially nonresponsive and unable to ambulate. He is already significantly bradycardic at times his heart rate is dipping into the 40s. He was given dexamethasone here. He has been started on hospice yesterday will discharge home continue hospice comfort cares prognosis grim at this point Lab Data Radiology Impressions Head CT 06/22/23 05:19 IMPRESSION: Intercerebral hematoma, it is in the location of a prior recurrent tumor. There is associated edema and midline shift. ADDENDUM: 06/22/23 0617 THIS REPORT CONTAINS FINDINGS THAT MAY BE CRITICAL TO PATIENT CARE. The findings were verbally communicated via telephone conference with Dr. Bustillo at 6:15 AM RN MDS on 06/22/2023. The findings were acknowledged and understood. Cervical Spine CT 06/22/23 05:25 IMPRESSION: 1. Right temporal intercerebral hematoma incompletely imaged. 2. No acute traumatic the spine. COMMENTS: Consistent with the [employer]'s Incidental Findings Committee white paper (J Am Sima Radiol 2015): In patients aged 35 years and older with an incidental thyroid nodule equal to or greater than 1.[address], MRI or extrathyroidal US, further evaluation with dedicated thyroid US is recommended for patients with normal life expectancy and without comorbidities. For smaller nodules without suspicious features, no further evaluation or follow up is recommended. Discharge Plan Discharge Patient Disposition: Home Clinical Impression: Intracranial bleeding, Accidental fall, Glioblastoma Condition: Stable Prescriptions: No Action benztropine 0.5 mg tablet 0.5 mg PO BID Qty: 60 0RF chlorpromazine 100 mg tablet 100 mg PO TID Qty: 90 0RF lithium carbonate 300 mg capsule 300 mg PO BID Qty: 60 0RF paroxetine HCl [Paxil] 10 mg tablet 10 mg PO .HS Qty: 30 0RF ammonium lactate 12 % cream 1 applic TOPICAL BID docusate sodium [Colace] 100 mg capsule 100 mg PO BID omeprazole 20 mg capsule,delayed release(DR/EC) 20 mg PO BID polyethylene glycol 3350 17 gram/dose powder 17 gm PO DAILY risperidone [Risperdal] 0.5 mg tablet 0.5 mg PO DAILY senna 8.6 mg capsule 8.6 mg PO BID PRN triamcinolone acetonide 0.025 % ointment 1 applic TOPICAL BID acetaminophen [Tylenol 8 Hour] 650 mg tablet extended release 650 mg PO Q8H bisacodyl 10 mg suppository 10 mg OR DAILY PRN Zyrtec 10 mg capsule 10 mg PO DAILY clobetasol 0.05 % cream 1 applic TOPICAL BID ondansetron HCl [Zofran] 8 mg tablet 8 mg PO Q12H (DME) Diabetic shoes with molded inserts See Rx Instructions .Route .MEDSUPPLY Qty: 1 0RF Rx Instructions: As directed (DME) Custom orthotic inserts See Rx Instructions .Route .MEDSUPPLY Qty: 1 0RF Rx Instructions: As directed Keppra 750 mg tablet 750 mg PO BID Qty: 60 0RF Discharge Orders: Discharge ED (Routine); Ordered 06/22/23 Ordered By: Rohan Bustillo Referrals: Mis Marcus FNP [Primary Care Provider] - Discharge Diet: Usual diet Discharge Activity: Limit activity as instructed Patient Instructions: Opioid Safety, Pain Management Activity Restrictions/Additional Instructions: Thank you for choosing [facility] for your healthcare needs today. Please realize this is an emergency room and that we are providing you with a medical screening exam and this may not be complete and all inclusive of all the testing and or work up that you may need to determine your ailment or severity of your illness. It is very important that you follow up as instructed or that you return to the Emergency Department should you have concerns or if your condition changes or worsens in any way. You are seen today after a fall there is bleeding at the site of the tumor on the right side of the brain. This is causing significant swelling inside of the brain. He will be discharged home on hospice for comfort cares. Sign Out Sign Out Data: Patient Sign Out occurred on 06/22/23 at 05:55. Patient's care was discussed, and care was transferred from Luis E Crowe MD to Rohan Bustillo DO. Coding Level of Care Code ED Composition Roll Maker And Cutter for Chg Fwd Documented by User: Rohan Bustillo DO 06/22/23 06:43 HPI - Fall General: Chief Complaint: Fall Stated Complaint: fall Time Seen by Provider: 06/22/23 05:17 History of Present Illness: 37-year-old male presents to the emergen cy department via EMS personnel from his long-term care facility. EMS states that the patient has stage IV brain cancer and unfortunately fell this evening hitting his head. He is a very poor historian and it is noted that his right pupil is larger than his left pupil. Per the [facility] staff it does not appear that the patient was knocked out or had loss of consciousness. 37-year-old male presented to the emerge ncy room post fall he has a history of stage IV glioblastoma. He fell denies hitting his head no reported loss of consciousness she had unequal pupils on arrival and ataxia after the fall. complaint: fall Onset (ago): minute(s) Fall from: standing Fall witnessed: yes, by living facility staff Place fall occurred: home Prolonged down time: no Location of injury: head Associated symptoms-after fall: Reports difficulty walking and headache(s); Denies abdominal pain or chest pain Review of Systems Card: Denies: chest pain GI: Denies: abdominal pain Neuro: Reports: headache(s) and difficulty walking PFSH ED PFSH: Medical History Autistic disorder Malignant neoplasm of overlapping sites of brain Schizophrenia, unspecified Family History Other Family history unknown Social History Smoking and tobacco/nicotine status: never used tobacco/nicotine Alcohol intake: never Physical Exam HENMT: COMMON NORMALS: normocephalic HEAD & SCALP: normocephalic Resp: COMMON NORMALS: normal respiratory effort, No retractions, No use of accessory muscles and clear to auscultation bilaterally AUSCULTATION: clear to auscultation bilaterally Cardio: COMMON NORMALS: regular rate, regular rhythm and No murmurs present (Cardio) RATE: regular rate RHYTHM: regular rhythm GI: COMMON NORMALS: Soft to palpation and No hepatosplenomegaly present AUSCULTATION: Yes normoactive bowel sounds PALPATION: Yes Soft to palpation, No Tenderness to palpation present (GI), No Guarding due to palpation present (GI) and Yes No hepatosplenomegaly present Extremity: COMMON NORMALS: normal to inspection, capillary refill normal, no clubbing, cyanosis or edema, no calf tenderness and no pedal edema Skin: COMMON NORMALS: no rashes or lesions noted GENERAL SKIN EXAM: no rashes or lesions noted Course Vital Signs: Vital signs: Vital Signs Temperature 97.8 F 06/22/23 05:18 Pulse Rate 58 L 06/22/23 11:51 Respiratory Rate 10 L 06/22/23 11:22 Blood Pressure 114/70 06/22/23 11:51 Pulse Oximetry 94 06/22/23 11:51 Oxygen Delivery Me thod Room Air 06/22/23 11:22 MDM - Fall Medical Decision Making Large intracranial bleed at the site of the previous tumor on the right frontal temporal area. There is midline shift. According to old records previously there is a 7 mm shift now there is a 9 mm shift given the history from the caregiver suspect this is an acute worsening of his bleed with increasing symptoms. Previously he had been able to ambulate on his own before this fall now he is essentially nonresponsive and unable to ambulate. He is already significantly bradycardic at times his heart rate is dipping into the 40s. He was given dexamethasone here. He has been started on hospice yesterday will discharge home continue hospice comfort cares prognosis grim at this point Medical Records I reviewed the patient's medical records. Lab Data I reviewed the patient's lab results. Radiology Impressions Head CT 06/22/23 05:19 IMPRESSION: Intercerebral hematoma, it is in the location of a prior recurrent tumor. There is associated edema and midline shift. ADDENDUM: 06/22/23 0617 THIS REPORT CONTAINS FINDINGS THAT MAY BE CRITICAL TO PATIENT CARE. The findings were verbally communicated via telephone conference with Dr. Bustillo at 6:15 AM RN MDS on 06/22/2023. The findings were acknowledged and understood. Cervical Spine CT 06/22/23 05:25 IMPRESSION: 1. Right temporal intercerebral hematoma incompletely imaged. 2. No acute traumatic the spine. COMMENTS: Consistent with the [employer]'s Incidental Findings Committee white paper (J Am Sima Radiol 2015): In patients aged 35 years and older with an incidental thyroid nodule equal to or greater than 1.[address], MRI or extrathyroidal US, further evaluation with dedicated thyroid US is recommended for patients with normal life expectancy and without comorbidities. For smaller nodules without suspicious features, no further evaluation or follow up is recommended. All radiology interpretation(s) finalized by discharge Discharge Plan Discharge Patient Disposition: Home Clinical Impression: Intracranial bleeding, Accidental fall, Glioblastoma Condition: Stable Prescriptions: No Action benztropine 0.5 mg tablet 0.5 mg PO BID Qty: 60 0RF chlorpromazine 100 mg tablet 100 mg PO TID Qty: 90 0RF lithium carbonate 300 mg capsule 300 mg PO BID Qty: 60 0RF paroxetine HCl [Paxil] 10 mg tablet 10 mg PO .HS Qty: 30 0RF ammonium lactate 12 % cream 1 applic TOPICAL BID docusate sodium [Colace] 100 mg capsule 100 mg PO BID omeprazole 20 mg capsule,delayed release(DR/EC) 20 mg PO BID polyethylene glycol 3350 17 gram/dose powder 17 gm PO DAILY risperidone [Risperdal] 0.5 mg tablet 0.5 mg PO DAILY senna 8.6 mg capsule 8.6 mg PO BID PRN triamcinolone acetonide 0.025 % ointment 1 applic TOPICAL BID acetaminophen [Tylenol 8 Hour] 650 mg tablet extended release 650 mg PO Q8H bisacodyl 10 mg suppository 10 mg OR DAILY PRN Zyrtec 10 mg capsule 10 mg PO DAILY clobetasol 0.05 % cream 1 applic TOPICAL BID ondansetron HCl [Zofran] 8 mg tablet 8 mg PO Q12H (DME) Diabetic shoes with molded inserts See Rx Instructions .Route .MEDSUPPLY Qty: 1 0RF Rx Instructions: As directed (DME) Custom orthotic inserts See Rx Instructions .Route .MEDSUPPLY Qty: 1 0RF Rx Instructions: As directed Keppra 750 mg tablet 750 mg PO BID Qty: 60 0RF Discharge Orders: Discharge ED (Routine); Ordered 06/22/23 Ordered By: Rohan Bustillo Referrals: Mis Marcus FNP [Primary Care Provider] - Discharge Diet: Usual diet Discharge Activity: Limit activity as instructed Patient Instructions: Opioid Safety, Pain Management Activity Restrictions/Additional Instructions: Thank you for choosing [facility] for your healthcare needs today. Please realize this is an emergency room and that we are providing you with a medical screening exam and this may not be complete and all inclusive of all the testing and or work up that you may need to determine your ailment or severity of your illness. It is very important that you follow up as instructed or that you return to the Emergency Department should you have concerns or if your condition changes or worsens in any way. You are seen today after a fall there is bleeding at the site of the tumor on the right side of the brain. This is causing significant swelling inside of the brain. He will be discharged home on hospice for comfort cares. Sign Out Sign Out Data: Patient Sign Out occurred on 06/22/23 at 05:55. Patient's care was discussed, and care was transferred from Luis E Crowe MD to Rohan Bustillo DO. Coding Level of Care Code ED Composition Roll Maker And Cutter for Lincoln Mitchell
--- NOTE | 2023-06-22 05:19 | CTR_ITS ---
PROCEDURE INFORMATION: Exam: CT Head Without Contrast Exam date and time: 06/22/2023 5:38 AM Age: 37 years old Clinical indication: Injury or trauma; Fall; Additional info: Fall/trauma TECHNIQUE: Imaging protocol: Computed tomography of the head without contrast. Radiation optimization: All CT scans at this facility use at least one of these dose optimization techniques: automated exposure control; mA and/or kV adjustment per patient size (includes targeted exams where dose is matched to clinical indication); or iterative reconstruction. REPORTING DATA: Count of CT and Cardiac NM exams in prior 12 months: This patient has received [address] and 0 known cardiac nuclear medicine studies in the 12 months prior to the current study. COMPARISON: CT head wo con* [id number] 04/29/2023 7:38 PM RADIATION DOSE METRICS: Total DLP (mGy-cm): 1236.28 FINDINGS: Brain: 9 mm right to left midline shift. Cerebral ventricles: Hydrocephalus particularly involving the occipital horns of the lateral ventricles but present diffusely. Paranasal sinuses: Visualized sinuses are unremarkable. No fluid levels. Mastoid air cells: Visualized mastoid air cells are well aerated. Bones/joints: Prior extensive right-sided craniotomy. Soft tissues: 5.6 cm right temporal intercerebral hematoma with mild surrounding edema. This is in the site a prior resected tumor. Encephalomalacia/gliosis in the right occipital lobe. CT/CT head wo con* [id number] IMPRESSION: Intercerebral hematoma, it is in the location of a prior recurrent tumor. There is associated edema and midline shift.
--- NOTE | 2023-06-22 05:25 | CTR_ITS ---
PROCEDURE INFORMATION: Exam: CT Cervical Spine Without Contrast Exam date and time: 06/22/2023 5:42 AM Age: 37 years old Clinical indication: Injury or trauma; Fall; Blunt trauma; Additional info: Fall/trauma AMS TECHNIQUE: Imaging protocol: Computed tomography of the cervical spine without contrast. Radiation optimization: All CT scans at this facility use at least one of these dose optimization techniques: automated exposure control; mA and/or kV adjustment per patient size (includes targeted exams where dose is matched to clinical indication); or iterative reconstruction. REPORTING DATA: Count of CT and Cardiac NM exams in prior 12 months: This patient has received [address] and 0 known cardiac nuclear medicine studies in the 12 months prior to the current study. COMPARISON: CT head wo con* [id number] 04/29/2023 7:38 PM RADIATION DOSE METRICS: Total DLP (mGy-cm): 227.87 FINDINGS: Bones/joints: Prior craniotomy with encephalomalacia/gliosis in the right occipital lobe. No fracture or dislocation. No lytic or sclerotic bone lesion. Well maintained disc spaces. Lungs: Lung apices are normal. Thyroid: 14 mm left thyroid nodule. Soft tissues: Large right temporal intercerebral hematoma incompletely imaged. Other findings: Mild anterior spurring. CT/CT cervical spin wo con* [id number] IMPRESSION: 1. Right temporal intercerebral hematoma incompletely imaged. 2. No acute traumatic the spine. COMMENTS: Consistent with the [employer]'s Incidental Findings Committee white paper (J Am Sima Radiol 2015): In patients aged 35 years and older with an incidental thyroid nodule equal to or greater than 1.[address], MRI or extrathyroidal US, further evaluation with dedicated thyroid US is recommended for patients with normal life expectancy and without comorbidities. For smaller nodules without suspicious features, no further evaluation or follow up is recommended.
--- NOTE | 2023-06-22 06:18 | ECG_ITS ---
[facility] Test Date: 2023-06-22 Pat Name: Segundo Moore Department: Room: Gender: Male Survey Party Chief: : 1985 Requested By: Rohan Ordoñez Order Number: [id number] Nataliia MD: Clare Fitzpatrick M.D. Measurements Intervals [place] Rate: 48 P: 11 SC: 132 QRS: 48 QRSD: 107 T: 43 QT: 429 QTc: 384 Interpretive Statements SINUS BRADYCARDIA WITH SINUS ARRHYTHMIA No previous ECG available for comparison Electronically Signed On 06-22-2023 7:17:03 PARKING CASHIER by Clare Fitzpatrick M.D. [id number]
[2023-06-22] MEDS: dexamethasone 10 mg/mL INJ IM (06:28)
--- NOTE | 2023-06-22 06:39 | PC.NURSE ---
Dr Bustillo spoke with caregiver and steam tank operator from patient's half-way, and educated them on diagnosis. instructional leader told this nurse that patient was placed on hospice yesterday. Initial decision to transfer patient to [facility] ceased, decision made to transport patient back home on hospice.
== END 2023-06-22 11:59 | disposition home or self-care (01) ==
PROVIDERS: Emergency Provider Family Medicine; PCP Nurse Practitioner Family
DX: S06.340A Traumatic hemorrhage of right cerebrum without loss of consciousness, initial encounter (principal); W19.XXXA Unspecified fall, initial encounter; F84.0 Autistic disorder; Y92.199 Unspecified place in other specified residential institution as the place of occurrence of the external cause; C71.8 Malignant neoplasm of overlapping sites of brain
CPT/HCPCS: 70450; 72125; 93005; 96372; 99284; J1100